=== PATIENT | female | born 1985 | race Caucasian/White ===

== ENCOUNTER 2018-05-29 11:18 | Emergency (ER) | payer SELFPAY ==
--- NOTE | 2018-05-29 13:00 | ED Physician Documentation ---
History of Present Illness - Stated complaint Stated Complaint: WEAKNESS/LEG PX - Chief complaint Chief Complaint: General - History obtained from History obtained from: Patient - History of Present Illness Timing: Other (Has been on steroids for psoriasis and now has bilateral leg pain, R>L as well as gen beody pain. Recent trip to [place], where she was prescribed Prednisone for the psoriasis. She had the psoriasis diagnosed by for her PCP for about 7 months. The steroid started with a taper from 60 mg down to 20 mg but with minimal response it was back up to 40mg At which dose she has been for about a week and a half, with a plan to be on that dose for a month.) Review of Systems Constitutional: denies: Fever, Chills Cardiac: denies: Chest pain / pressure, Palpitations Respiratory: denies: Dyspnea, Cough GI: denies: Abdominal Pain, Nausea, Vomiting, Diarrhea Musculoskeletal: reports: Neck pain, Joint pain, Extremity swelling PD PAST MEDICAL HISTORY - Past Medical History Past Medical History: Yes Derm: Psoriasis - Past Surgical History Past Surgical History: No - Present Medications Home Medications: Ambulatory Orders Medication Instructions Recorded Confirmed oxyCODONE [Roxicodone] 5 mg PO Q4-6H PRN #10 tablet 05/29/18 predniSONE [Prednisone] 20 mg PO BID 05/29/18 05/29/18 - Allergies Allergies/Adverse Reactions: Allergies Allergy/AdvReac Type Severity Reaction Status Date / Time No Known Drug Allergies Allergy Verified 05/29/18 11:26 - Social History Does the pt smoke?: Yes Smoking Status: Current every day smoker Does the pt drink ETOH?: Yes Substance Use and Type: Marijuana - Immunizations Immunizations are current?: Yes PD ED PE NORMAL - Vitals Vital signs reviewed: Yes - General General: Alert and oriented X 3, No acute distress - Neck Neck: Supple, no meningeal sign, No bony TTP, No adenopathy - Cardiac Cardiac: RRR, No murmur - Respiratory Respiratory: No respiratory distress, Other (Coarse at bases) - Abdomen Abdomen: Normal bowel sounds, Soft, Non tender - Derm Derm: Other (diffuse psoriasis) - Neuro Neuro: Alert and oriented X 3, Normal speech - Psych Psych: Normal mood, Normal affect Results - Vitals Vitals: Vital Signs - 24 hr 05/29/18 05/29/18 05/29/18 11:22 12:06 13:28 Temperature 36 C L Heart Rate 88 81 90 Respiratory 16 15 16 Rate Blood Pressure 132/91 H 130/90 H 128/87 H O2 Saturation 96 98 95 Oxygen O2 Source Room air - Labs Labs: Laboratory Tests 05/29/18 05/29/18 05/29/18 13:25 13:25 13:25 WBC 10.3 RBC 3.87 L Hgb 14.4 Hct 41.8 MCV 108.0 H MCH 37.3 H MCHC 34.5 RDW 13.2 Plt Count 238 MPV 7.3 L Neut # (Auto) 6.0 Lymph # (Auto) 3.4 [place] # (Auto) 0.8 Eos # (Auto) 0.0 Baso # (Auto) 0.0 Absolute Nucleated RBC 0.00 Nucleated RBC % 0.0 Sodium 140 Potassium 3.8 Chloride 101 Carbon Dioxide 29 Anion Gap 10.0 BUN 11 Creatinine 0.7 Estimated GFR (MDRD) 97 Glucose 88 Calcium 8.9 Magnesium 2.5 Total Bilirubin 0.4 AST 53 H ALT 56 Alkaline Phosphatase 71 Total Creatine Kinase 46 Total Protein 7.6 Albumin 4.0 Globulin 3.6 Albumin/Globulin Ratio 1.1 Lipase 56 H TSH 1.17 Urine Color Urine Clarity Urine pH Ur Specific [place] Urine Protein Urine Glucose (UA) Urine Ketones Urine Occult Blood Urine Nitrite Urine Bilirubin Urine Urobilinogen Ur Leukocyte Esterase Ur Microscopic Review Urine Culture Comments Urine HCG, Qual Ethyl Alcohol 05/29/18 05/29/18 13:25 13:40 WBC RBC Hgb Hct MCV MCH MCHC RDW Plt Count MPV Neut # (Auto) Lymph # (Auto) [place] # (Auto) Eos # (Auto) Baso # (Auto) Absolute Nucleated RBC Nucleated RBC % Sodium Potassium Chloride Carbon Dioxide Anion Gap BUN Creatinine Estimated GFR (MDRD) Glucose Calcium Magnesium Total Bilirubin AST ALT Alkaline Phosphatase Total Creatine Kinase Total Protein Albumin Globulin Albumin/Globulin Ratio Lipase TSH Urine Color YELLOW Urine Clarity CLEAR Urine pH 6.0 Ur Specific [place] 1.025 Urine Protein NEGATIVE Urine Glucose (UA) NEGATIVE Urine Ketones NEGATIVE Urine Occult Blood NEGATIVE Urine Nitrite NEGATIVE Urine Bilirubin NEGATIVE Urine Urobilinogen 0.2 (NORMAL) Ur Leukocyte Esterase NEGATIVE Ur Microscopic Review NOT INDICATED Urine Culture Comments NOT INDICATED Urine HCG, Qual NEGATIVE Ethyl Alcohol 253.1 PD MEDICAL DECISION MAKING - ED course ED course: This is a 32-year-old woman with history of clinically diagnosed psoriasis who has been on a steroid taper and now has myalgias and diffuse pain. She also has atypical fat distribution with muscular atrophy in the arms suggestive of some other chronic illness. Based on her initial labs and alcohol level was also checked and this was discussed with her and she is an alcoholic. She declined to talk to community mental health social worker about this today. She understands it is a problem. DVT scan of both legs was negative. She was offered a small amount of pain medication to help with the pain and I think she should come off of the steroids in the short-term and follow-up with a underwriting support specialist. Departure - Departure Disposition: Home, Self Care Clinical Impression: Psoriasis, Alcohol abuse, Myalgia, Chronic steroid use Condition: Good Record reviewed to determine appropriate education?: Yes Instructions: ED Alcohol Abuse Follow-Up: [facility] [Provider Group] Prescriptions: oxyCODONE [Roxicodone] 5 mg PO Q4-6H PRN #10 tablet PRN Reason: Pain Comments: It is imperative that she stop using alcohol. As discussed it is affecting her liver and your overall health. Return anytime if you want to talk to the community mental health social worker about this or explore detoxification options. It is also important to follow-up with a underwriting support specialist regarding the ongoing diagnosis and treatment of your psoriasis. Long-term oral steroids are not a good option for this. As far as the steroids ago, go down to 20 mg a day for a week, that is 1 tablet once a day for 3 days. Then cut the tablets in half taking 10 mg a day/half a tablet for a week. Then cut them in quarters taking 5 mg / 1/4 tablet a day for a week.
[2018-05-29] MEDS ORDERED: HYDROcod/ACETAM 5/325 MG TABLET PO STA (13:17)
[2018-05-29 13:32] LABS: BASOPHILS % (AUTO) 0.4 %; EOSINOPHILS % (AUTO) 0.3 %; HGB - HEMOGLOBIN 14.4 g/dL (12.0-16.0); LYMPHOCYTES # (AUTO) 3.4 10^3/uL (1.5-3.5); LYMPHOCYTES % (AUTO) 32.9 %; MEAN CORPUSCULAR HEMOGLOBIN 37.3 pg (27.0-31.0); MEAN CORPUSCULAR HGB CONC 34.5 g/dL (32.0-36.0); MEAN PLATELET VOLUME 7.3 fL (7.9-10.8); MONOCYTES # (AUTO) 0.8 10^3/uL (0.0-1.0); MONOCYTES % (AUTO) 7.8 %; NEUTROPHILS % (AUTO) 58.6 %; PLT - PLATELET COUNT 238 10^3/uL (130-450); RED BLOOD COUNT 3.87 10^6/uL (4.20-5.40); RED CELL DISTRIBUTION WIDTH 13.2 % (12.0-15.0); WHITE BLOOD COUNT 10.3 x10^3/uL (4.8-10.8)
[2018-05-29 13:47] LABS: ALBUMIN/GLOBULIN RATIO 1.1 (1.0-2.2); BILIRUBIN,TOTAL 0.4 mg/dL (0.2-1.0); CALCIUM 8.9 mg/dL (8.5-10.3); CREATININE 0.7 mg/dL (0.4-1.0); MAGNESIUM 2.5 mg/dL (1.7-2.8); TOTAL PROTEIN 7.6 g/dL (6.7-8.2)
[2018-05-29 13:48] LABS: BILIRUBIN,URINE NEGATIVE (NEGATIVE); GLUCOSE, URINE (UA) NEGATIVE (NEGATIVE); KETONES,URINE (UA) NEGATIVE (NEGATIVE); LEUKOCYTE ESTERASE, URINE NEGATIVE (NEGATIVE); NITRITE,URINE NEGATIVE (NEGATIVE); OCCULT BLOOD,URINE NEGATIVE (NEGATIVE); PROTEIN,URINE NEGATIVE (NEGATIVE); UROBILINOGEN,URINE 0.2 (NORMAL) E.U./dL (NORMAL)
[2018-05-29 13:49] LABS: CLARITY,URINE CLEAR (CLEAR); HCG UR QUAL NEGATIVE
--- NOTE | 2018-05-29 15:21 | Ultrasound Report ---
Reason: leg pain, recent travel Procedure Date: 05/29/2018 Accession Number: [id number] / [id number] Procedure: US - Duplex Ext Veins Bilateral CPT Code: FULL RESULT: EXAM: BILATERAL LOWER EXTREMITY VENOUS ULTRASOUND EXAM DATE: 05/29/2018 03:05 PM. CLINICAL HISTORY: Leg pain, recent travel. COMPARISON: None. TECHNIQUE: Real-time sonographic vascular imaging was performed by the ibm mainframe systems programmer through the lower extremities utilizing both color-flow and Doppler spectral analysis. Multiple in store marketing representative static images were saved for review. FINDINGS: Right: Common Femoral Vein (CFV): Normal. CFV-GSV Junction: Normal. Profunda Femoral Vein (PFV): Normal. Femoral Vein (FV) Prox: Normal. Femoral Vein (FV) Mid: Normal. Femoral Vein (FV) Dist: Normal. Popliteal Vein: Normal. Posterior Tibial Veins: Normal. Peroneal Veins: Normal. Left: Common Femoral Vein (CFV): Normal. CFV-GSV Junction: Normal. Profunda Femoral Vein (PFV): Normal. Femoral Vein (FV) Prox: Normal. Femoral Vein (FV) Mid: Normal. Femoral Vein (FV) Dist: Normal. Popliteal Vein: Normal. Posterior Tibial Veins: Normal. Peroneal Veins: Normal. Other: None. IMPRESSION: No evidence for deep venous thrombosis bilaterally. RADIA
[2018-05-29 15:59] VITALS: BP 134/91
== END 2018-05-29 15:59 | disposition home or self-care (01) ==
LOC: ED 11:18
DX: M79.605 Pain in left leg (principal); M79.604 Pain in right leg; M79.10 Myalgia, unspecified site; L40.9 Psoriasis, unspecified; Z79.52 Long term (current) use of systemic steroids; F10.10 Alcohol abuse, uncomplicated; F17.200 Nicotine dependence, unspecified, uncomplicated
CPT/HCPCS: 36415; 80053; 80320; 81003; 81025; 82550; 83690; 83735; 84443; 85025; 93970; 99283; A9270; 81001; 87086

== ENCOUNTER 2019-07-15 14:38 | Emergency (ER) | payer MEDICAID ==
[2019-07-15 14:47] VITALS: BP 129/96
--- NOTE | 2019-07-15 14:49 | ED Physician Documentation ---
PD HPI URI - Stated complaint Stated Complaint: WEAKNESS - Chief complaint Chief Complaint: General - History obtained from History obtained from: Patient - History of Present Illness Timing - onset: How many weeks ago (1) Timing duration: Weeks (1 week of URI symptoms with fatigue, cough, fevers, congested. She is feeling improved. Had been out of work last week due to illnes s. 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 No: Fever, Dyspnea, NVD, Bilateral edema Contributing factors: No: Sick contact, Travel, Immunocompromised, COPD / asthma Improves by: Rest Worsened by: Activity Similar symptoms before: Has not had sx before Recently seen: Not recently seen Review of Systems Constitutional: reports: Myalgias, Fatigue. denies: Fever, Chills Nose: reports: Congestion. denies: Rhinorrhea / runny nose Throat: reports: Sore throat Cardiac: denies: Chest pain / pressure, Palpitations Respiratory: reports: Cough, Wheezing. denies: Dyspnea GI: denies: Abdominal Pain, Nausea, Vomiting, Diarrhea Skin: denies: Rash PD PAST MEDICAL HISTORY - Past Medical History Cardiovascular: None Respiratory: None Neuro: None Endocrine/Autoimmune: None Derm: Psoriasis - Past Surgical History Past Surgical History: No - Present Medications Home Medications: Ambulatory Orders Medication Instructions Recorded Confirmed Albuterol Sulfate [Albuterol 2 puffs IH QID #1 hfa.aer.ad 07/15/19 Sulfate Hfa] - Allergies Allergies/Adverse Reactions: Allergies Allergy/AdvReac Type Severity Reaction Status Date / Time No Known Drug Allergies Allergy Verified 07/15/19 14:47 - Social History Does the pt smoke?: Yes Smoking Status: Current every day smoker Does the pt drink ETOH?: Yes - Immunizations Immunizations are current?: Yes PD ED PE NORMAL - Vitals Vital signs reviewed: Yes (heart rate is elevated but she seems somewhat anxi ous. ) - General General: Alert and oriented X 3, No acute distress, Well developed/nourished - HEENT HEENT: Ears normal, Moist mucous membranes, Pharynx benign - Neck Neck: Supple, no meningeal sign, No adenopathy - Cardiac Cardiac: RRR, No murmur, No rub - Respiratory Respiratory: No respiratory distress. No: Clear bilaterally (mild scattered wheezes. No coarse sounds. ) - Abdomen Abdomen: Soft, Non tender - Derm Derm: Normal color, Warm and dry - Extremities Extremities: Normal ROM s pain, No edema, No calf tenderness / cord - Neuro Neuro: Alert and oriented X 3, No motor deficit, Normal speech Results - Vitals Vitals: Vital Signs - 24 hr 07/15/19 07/15/19 14:43 15:09 Temperature 36.3 C L Heart Rate 109 H 96 Respiratory 18 Rate Blood Pressure 129/96 H O2 Saturation 98 Oxygen O2 Source Room air PD MEDICAL DECISION MAKING - ED course Complexity details: reviewed results (Her heart rate is up but she says she gets nervous in medical settings. Appears well otherwise. ), considered differential (recent URI with cough and fatigue. 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 ), d/w patient Departure - Departure Disposition: 01 Home, Self Care Clinical Impression: Recent URI Condition: Stable Record reviewed to determine appropriate education?: Yes Instructions: ED URI Viral W Wheezing Follow-Up: [facility] [Provider Group] [facility] [Provider Group] Prescriptions: Albuterol Sulfate [Albuterol Sulfate Hfa] 2 puffs IH QID #1 hfa.aer.ad Comments: Stay well-hydrated. You could use an albuterol inhaler 2 puffs 4 times a day if needed for cough and wheeziness. Note be common to have a bit of a cough and some shortness of breath for a week or 2 after a chest cold. 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 I did provide a couple of clinic names for initiating as a new patient. Call and see who has appointments upcoming. Recheck if not improved well over the next week or 2 with regard to any cough. Return if worsening. Forms: Activity restrictions Discharge Date/Time: 07/15/19 15:09
== END 2019-07-15 15:09 | disposition home or self-care (01) ==
LOC: ED 14:38
DX: J06.9 Acute upper respiratory infection, unspecified (principal); F17.200 Nicotine dependence, unspecified, uncomplicated
CPT/HCPCS: 99282; 99284

== ENCOUNTER 2020-04-08 13:27 | Emergency (ER) | payer MEDICAID ==
[2020-04-08] MEDS ORDERED: SODIUM CHLORIDE 0.9% 1,000 ML IV STA (13:43)
[2020-04-08] MEDS ORDERED: LORazepam 2 MG/ML VIAL IVP STA ×2 (13:43→14:49)
[2020-04-08] MEDS ORDERED: THIAMINE INJ 100 MG in SODIUM CHLORIDE 0.9% 50 ML IV STA (13:43)
[2020-04-08] MEDS ORDERED: ONDANSETRON 4 MG/2 ML VIAL IVP STA (13:43)
--- NOTE | 2020-04-08 13:45 | ED Physician Documentation ---
History of Present Illness - Stated complaint Stated Complaint: ETOH - Chief complaint Chief Complaint: General - History obtained from History obtained from: Patient - Additonal information Additional information: 34-year-old woman with history of alcoholism presents because she is feeling quite shaky and anxious in the midst of trying to decrease her alcohol use. Drinks wine by the box. Has not been sober in a long time. She is feeling like her insides are crawling and nauseous. Denies hallucinations. No history of seizures. Review of Systems Ten Systems: 10 systems reviewed and negative Constitutional: reports: Sweats Cardiac: denies: Chest pain / pressure, Palpitations Respiratory: denies: Dyspnea, Cough GI: denies: Abdominal Pain PD PAST MEDICAL HISTORY - Past Medical History Cardiovascular: None Respiratory: None Neuro: None Endocrine/Autoimmune: None Derm: Psoriasis - Past Surgical History Past Surgical History: No - Present Medications Home Medications: Ambulatory Orders Medication Instructions Recorded Confirmed LORazepam [Ativan] 1 mg PO TID PRN #12 tablet 04/08/20 Ondansetron Odt [Zofran] 4 mg TL Q6H PRN #10 tablet 04/08/20 Thiamine [Vitamin B-1] 100 mg PO DAILY #14 tablet 04/08/20 - Allergies Allergies/Adverse Reactions: Allergies Allergy/AdvReac Type Severity Reaction Status Date / Time No Known Drug Allergies Allergy Verified 04/08/20 13:35 - Social History Does the pt smoke?: Yes Smoking Status: Current every day smoker Does the pt drink ETOH?: Yes - Immunizations Immunizations are current?: Yes PD ED PE NORMAL - Vitals Vital signs reviewed: Yes - General General: Alert and oriented X 3, No acute distress, Other (Visibly tremulous) - HEENT HEENT: PERRL, EOMI, Other (Periorbital ecchymosis on the left from a recent fall, no bony tenderness of the face.) - Neck Neck: No bony TTP - Cardiac Cardiac: Other (Tachycardic but regular, no murmur) - Respiratory Respiratory: No respiratory distress, Clear bilaterally - Abdomen Abdomen: Soft, Non tender - Back Back: No CVA TTP, No spinal TTP - Derm Derm: Normal color, Warm and dry - Extremities Extremities: No edema, No calf tenderness / cord - Neuro Neuro: Alert and oriented X 3, Normal speech Results - Vitals Vitals: Vital Signs - 24 hr 04/08/20 04/08/20 13:30 14:30 Temperature 36.4 C L 37.3 C Heart Rate 133 H 99 Respiratory 20 20 Rate Blood Pressure 146/101 H 135/98 H O2 Saturation 100 98 Oxygen O2 Source Room air - Labs Labs: Laboratory Tests 04/08/20 04/08/20 04/08/20 13:13 13:13 13:13 WBC 6.3 RBC 3.61 L Hgb 13.3 Hct 38.5 MCV 106.6 H MCH 36.8 H MCHC 34.5 RDW 13.1 Plt Count 137 MPV 10.1 Neut # (Auto) 4.8 Lymph # (Auto) 0.6 L [place] # (Auto) 0.4 Eos # (Auto) 0.4 Baso # (Auto) 0.1 Absolute Nucleated RBC 0.00 Nucleated RBC % 0.0 PT 14.4 H INR 1.3 H Sodium 134 L Potassium 3.2 L Chloride 91 L Carbon Dioxide 22 Anion Gap 21.0 H BUN 6 Creatinine 0.7 Estimated GFR (MDRD) 96 Glucose 128 H Calcium 9.9 Total Bilirubin 2.8 H AST 263 H ALT 96 H Alkaline Phosphatase 250 H Total Protein 9.1 H Albumin 4.5 Globulin 4.6 H Albumin/Globulin Ratio 1.0 Lipase 58 H Ethyl Alcohol 72.7 PD MEDICAL DECISION MAKING - ED course ED course: 34-year-old woman presents in alcohol withdrawal, trying to cut back on her own. She is quite shaky and hyperdynamic despite having a measurable blood alcohol at 74. Meld score is 16 points suggesting a 6% 3-month mortality and this was discussed with the patient. I discussed it in the setting of she wants to try to go manage this at home with medications but I encouraged her to talk to social work and explore options for inpatient detoxification and she is willing to at least talk to them. Her discriminatory factor is 18.4 suggesting no need for current glucocorticoid therapy. Social work did see her, but patient declined offers at inpatient treatment. Outpatient resources were given. Departure - Departure Disposition: 01 Home, Self Care Clinical Impression: Alcohol abuse Condition: Good Record reviewed to determine appropriate education?: Yes Instructions: ED Withdrawal Alcohol Prescriptions: LORazepam [Ativan] 1 mg PO TID PRN #12 tablet PRN Reason: Anxiety Thiamine [Vitamin B-1] 100 mg PO DAILY #14 tablet Ondansetron Odt [Zofran] 4 mg TL Q6H PRN #10 tablet PRN Reason: Nausea / Vomiting Comments: I recommend inpatient alcohol detoxification, you have declined this. Return if you change your mind or worsen. Do not drink or drive while taking the medications for withdrawal.
[2020-04-08 14:16] LABS: BASOPHILS # (AUTO) 0.1 10^3/uL (0.0-0.1); BASOPHILS % (AUTO) 0.8 %; EOSINOPHILS # (AUTO) 0.4 10^3/uL (0.0-0.7); EOSINOPHILS % (AUTO) 6.2 %; HGB - HEMOGLOBIN 13.3 g/dL (12.0-16.0); LYMPHOCYTES # (AUTO) 0.6 10^3/uL (1.5-3.5); LYMPHOCYTES % (AUTO) 9.5 %; MEAN CORPUSCULAR HEMOGLOBIN 36.8 pg (27.0-31.0); MEAN CORPUSCULAR HGB CONC 34.5 g/dL (32.0-36.0); MEAN CORPUSCULAR VOLUME 106.6 fL (81.0-99.0); MEAN PLATELET VOLUME 10.1 fL (7.9-10.8); MONOCYTES # (AUTO) 0.4 10^3/uL (0.0-1.0); MONOCYTES % (AUTO) 6.7 %; NEUTROPHILS # (AUTO) 4.8 10^3/uL (1.5-6.6); NEUTROPHILS % (AUTO) 76.2 %; PLT - PLATELET COUNT 137 10^3/uL (130-450); RED BLOOD COUNT 3.61 10^6/uL (4.20-5.40); RED CELL DISTRIBUTION WIDTH 13.1 % (12.0-15.0); WHITE BLOOD COUNT 6.3 x10^3/uL (4.8-10.8)
[2020-04-08 14:21] LABS: INR 1.3 (0.8-1.2); PT - PROTHROMBIN TIME 14.4 secs (9.9-12.6)
[2020-04-08 14:27] LABS: ALBUMIN 4.5 g/dL (3.2-5.5); BILIRUBIN,TOTAL 2.8 mg/dL (0.2-1.0); CALCIUM 9.9 mg/dL (8.5-10.3); CREATININE 0.7 mg/dL (0.4-1.0); TOTAL PROTEIN 9.1 g/dL (6.7-8.2)
[2020-04-08 15:54] VITALS: BP 110/68
== END 2020-04-08 15:53 | disposition home or self-care (01) ==
LOC: ED 13:27
DX: F10.139 Alcohol abuse with withdrawal, unspecified (principal); Y90.3 Blood alcohol level of 60-79 mg/100 ml; F41.9 Anxiety disorder, unspecified; S00.12XA Contusion of left eyelid and periocular area, initial encounter; W19.XXXA Unspecified fall, initial encounter; F17.200 Nicotine dependence, unspecified, uncomplicated
CPT/HCPCS: 80053; 80320; 83690; 85025; 85610; 96365; 96375; 96376; 99283; 99284; J2060; J3411; J7040; 36415

== ENCOUNTER 2020-05-13 09:03 | Emergency (ER) | payer MEDICAID ==
[2020-05-13 09:13] VITALS: BP 134/89
--- NOTE | 2020-05-13 09:19 | ED Physician Documentation ---
History of Present Illness - Stated complaint Stated Complaint: ETOH WITHDRAWS - Chief complaint Chief Complaint: General - History obtained from History obtained from: Patient - Additonal information Additional information: 34-year-old woman with history of alcoholism presents with mild alcohol withdrawal. Last drink was last night and actually took an Ativan this morning. She plans to fly to [place] tomorrow where she has family to enter inpatient detox and needs some medications for withdrawal symptoms. No other specific acute complaints. No hallucinations or seizures. Review of Systems Ten Systems: 10 systems reviewed and negative Constitutional: reports: Sweats. denies: Fever, Chills GI: reports: Nausea. denies: Vomiting PD PAST MEDICAL HISTORY - Past Medical History Cardiovascular: None Respiratory: None Neuro: None Endocrine/Autoimmune: None Derm: Psoriasis - Past Surgical History Past Surgical History: No - Present Medications Home Medications: Ambulatory Orders Medication Instructions Recorded Confirmed LORazepam [Ativan] 1 mg PO TID PRN #12 tablet 04/08/20 05/13/20 Ondansetron Odt [Zofran] 4 mg TL Q6H PRN #10 tablet 04/08/20 05/13/20 Thiamine [Vitamin B-1] 100 mg PO DAILY #14 tablet 04/08/20 05/13/20 LORazepam [Ativan] 1 mg PO TID PRN #12 tablet 05/13/20 - Allergies Allergies/Adverse Reactions: Allergies Allergy/AdvReac Type Severity Reaction Status Date / Time No Known Drug Allergies Allergy Verified 05/13/20 09:08 - Social History Does the pt smoke?: Yes Smoking Status: Current every day smoker Does the pt drink ETOH?: Yes - Immunizations Immunizations are current?: Yes PD ED PE NORMAL - Vitals Vital signs reviewed: Yes - General General: Alert and oriented X 3, Other (Very mildly tremulous otherwise no distress.) - HEENT HEENT: PERRL (Anicteric) - Neuro Neuro: Alert and oriented X 3, Normal speech - Psych Psych: Normal mood, Normal affect Results - Vitals Vitals: Vital Signs - 24 hr 05/13/20 09:08 Temperature 37.2 C Heart Rate 113 H Respiratory 18 Rate Blood Pressure 134/89 H O2 Saturation 100 Oxygen O2 Source Room air Departure - Departure Disposition: 01 Home, Self Care Clinical Impression: Alcohol abuse Condition: Good Record reviewed to determine appropriate education?: Yes Instructions: ED Withdrawal Alcohol Prescriptions: LORazepam [Ativan] 1 mg PO TID PRN #12 tablet PRN Reason: Anxiety Comments: Do not drink or drive while taking lorazepam. Return if worse. Your plan to enter detox tomorrow is excellent and I wish you the best of luck staying alcohol free.
--- OUTSIDE RECORDS SUMMARY | 2020-05-20 00:38 | EXTERNAL MEDICAL SUMMARY RPT | Continuity of Care Document ---
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 Katus Unavailable Unavailable Problems date description facility 2020-04-08 13:27 NICOTINE DEPENDENCE, UNSPECIFIED, [facility] UNCOMPLICATED 2020-04-08 13:27 ANXIETY DISORDER, UNSPECIFIED [facility] 2020-04-08 13:27 CONTUSION OF LEFT EYELID AND [facility] PERIOCULAR AREA, INIT 2020-04-08 13:27 UNSPECIFIED FALL, INITIAL [facility] ENCOUNTER 2020-04-08 13:27 BLOOD ALCOHOL LEVEL OF 60-79 [facility] MG/100 ML 2020-04-08 13:27 ALCOHOL ABUSE WITH WITHDRAWAL, [facility] UNSPECIFIED 2020-04-08 13:27 TREMOR, UNSPECIFIED [facility] 2020-04-08 13:27 CONTUSION OF LEFT EYELID AND [facility] PERIOCULAR AREA, INIT ENCNTR 2020-05-13 09:03 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
== END 2020-05-13 09:26 | disposition home or self-care (01) ==
LOC: ED 09:03
DX: F10.139 Alcohol abuse with withdrawal, unspecified (principal); F17.200 Nicotine dependence, unspecified, uncomplicated
CPT/HCPCS: 99282; 99283